=== PATIENT | female | born 1955 | race Caucasian/White ===

== ENCOUNTER → 2018-02-19 | Outpatient (CLI) | payer BC ==
[~2018-02-19] MED LIST: BUSPIRONE HCL5 MG PO; LIPITOR 20 MG T20 M1 PO; LOSARTAN POTAS100 MG PO; MYRBETRIQ50 MG PO; NEURONTIN 300300 M1 PO; OMEPRAZOLE 20 M20 M1 PO; TRAZODONE 150150 M1 PO; WELCHOL 625 MG625 M1 PO
== END ==
LOC: RAD 05:47
DX: R13.10 Dysphagia, unspecified (principal); Z90.49 Acquired absence of other specified parts of digestive tract